=== PATIENT | male | born 1945 | race Caucasian/White ===

== ENCOUNTER 2024-09-19 08:31 | Emergency (ER) | payer MEDICARE, OTHER, SELFPAY ==
[2024-09-19 08:45] VITALS: BP 138/79; PULSE 99; RESP 16; TEMP 36.8; O2SAT 98
--- NOTE | 2024-09-19 09:07 | ED_ITS ---
HPI - Wound/Laceration General Chief Complaint: Wound/Laceration Stated Complaint: RACCOON BITE TO L INDEX FINGER Source: patient Mode of arrival: ambulatory Limitations: no limitations History of Present Illness HPI narrative: 79-year-old male presented for complaint of the recommend bite to the left index fingertip sustained this morning. Patient removed the flap of skin prior to arrival. No other treatment. Unsure of his last tetanus. States he captured the wild raccoon and upon releasing it the raccoon bit him. Pt is not vaccinated for rabies. Related Data Home Medications Medication Instructions Recorded Confirmed Last Taken Type aspirin 81 mg capsule 81 mg PO DAILY 09/19/24 09/19/24 Unknown History dulaglutide 0.75 mg/0.5 mL mg subcut 09/19/24 Unknown History subcutaneous pen injector (Trulicity) lisinopril 20 mg tablet mg 09/19/24 Unknown History lovastatin 40 mg tablet mg 09/19/24 Unknown History metoprolol succinate 50 mg mg PO 09/19/24 Unknown History tablet,extended release 24 hr sitagliptin phos 100 mg-metformin tablet PO 09/19/24 Unknown History ER 1,000 mg tablet,extend rel 24h mp (Janumet XR) tamsulosin 0.4 mg capsule mg PO 09/19/24 Unknown History Allergies Allergy/AdvReac Type Severity Reaction Status Date / Time No Known Allergies Allergy Verified 09/19/24 08:47 Review of Systems Review of Systems: CONSTITUTIONAL: Denies body aches, fever, chills, or sweats. EYES: Denies visual changes, redness, or discharge. ENT: Denies rhinorrhea, congestion CARDIOVASCULAR: Denies chest pain, palpitations, or edema. RESPIRATORY: Denies cough or dyspnea. GASTROINTESTINAL: Denies abdominal pain, nausea, vomiting, or diarrhea. SKIN: per HPI MUSCULOSKELETAL: Denies back pain, joint pain, or myalgia. NEUROLOGIC: Denies headache, numbness, tingling, or weakness. PMFSH Comments At time of signature, I have reviewed and agree with nursing past medical, annabel gical, social and family history unless otherwise noted. Please see nursing chart for further information. There is no relevant family history pertinent to the presenting complaint Exam Narrative: GENERAL: Well-appearing EYES: conjunctivae clear, and EOMI. ENT: Mucous membranes moist. NECK: Supple. No lymphadenopathy CHEST: Clear to auscultation. HEART: Regular rate and rhythm. SKIN: Warm, dry. Left 2nd digit distal phalanx with skin avulsion approx 0.5 cm, no flap present. Scant active bleeding. CMS intact. NEURO: Alert and oriented x3. Course Course Emergency Course: Patient is aware of diagnosis, understands and agrees to treatment plan. Anticipatory guidance given. Patient agrees to follow-up as directed and is aware of reasons to seek care at the emergency department. Portions of this record may have been created with voice recognition software Level of Care: Express Care Visit Vital Signs Vital signs: Vital Signs Temperature 98.3 F 09/19/24 08:45 Pulse Rate 99 09/19/24 08:45 Respiratory Rate 16 09/19/24 08:45 Blood Pressure 138/79 09/19/24 08:45 Pulse Oximetry 98 09/19/24 08:45 Temperature 98.3 F 09/19/24 08:45 Pulse Rate 99 09/19/24 08:45 Respiratory Rate 16 09/19/24 08:45 Blood Pressure 138/79 09/19/24 08:45 Pulse Oximetry 98 09/19/24 08:45 Reviewed MDM - Wound/Laceration MDM Narrative Medical decision making narrative: Pt presented with reported raccoon bite injury to left 2nd digit; 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 Wound soaked in povidone-iodine solution. Dressing applied, telfa and coban. Tetanus updated today. Pt requires rabies treatment, agreeable to transfer to ER as health dept closed today. Pt is accompanied by dtr. Differential Diagnosis Differential diagnosis: Likely laceration, abrasion and avulsion of skin Discharge Plan Discharge Clinical Impression: Raccoon bite Patient Disposition: Acute Care Hospital Condition: Stable Patient Language: Serbian Prescriptions: No Action metoprolol succinate 50 mg tablet extended release 24 hr PO lisinopril 20 mg tablet lovastatin 40 mg tablet Janumet XR 100-1,000 mg tablet, ER multiphase 24 hr PO Trulicity 0.75 mg/0.5 mL pen injector SUBCUT tamsulosin 0.4 mg capsule PO aspirin 81 mg capsule 81 mg PO DAILY Follow-up/Referrals: Romario,MD Arlyn [Primary Care Provider] - Time of Disposition: 09:09
[2024-09-19] MEDS: TETANUS/DIPHTHERIA TOXOIDS ADSORB 0.5 ML SYRINGE (*BKC) IM (09:24)
== END 2024-09-19 09:28 | disposition short-term general hospital (02) ==
PROVIDERS: PCP Internal Medicine
DX: S61.251A Open bite of left index finger without damage to nail, initial encounter (principal); W55.51XA Bitten by raccoon, initial encounter; Z23 Encounter for immunization; E11.9 Type 2 diabetes mellitus without complications; I10 Essential (primary) hypertension; E78.00 Pure hypercholesterolemia, unspecified; N40.0 Benign prostatic hyperplasia without lower urinary tract symptoms; Z85.828 Personal history of other malignant neoplasm of skin; Z79.82 Long term (current) use of aspirin
CPT/HCPCS: 90471; 90714; 99202; G0463

== ENCOUNTER 2024-09-19 09:51 | Emergency (ER) | payer MEDICARE, OTHER, SELFPAY ==
--- OUTSIDE RECORDS SUMMARY | 2024-09-19 09:52 | XMS_ITS | Encounter Summary ---
Author Organization [facility] Address [facility] [place] [address] Care Team Providers Care Bias Binding Folder Name Role Phone Arlyn Doss MD Primary Care Provider [phone] Encounter Details Date Type Department Care Team (Late st Contact Info) Description 07/26/2024 [employer] Message Enc [facility] Medical Group Multispecialty Care - [facility] [address] [facility], [address] [place] [address] Kellee Cohen NP [address] [facility] [address] [place] [address] Samir Carroll Social History Tobacco Use Types Packs/Day Years Used Date Smoking Tobacco: Never Smokeless Tobacco: Never Alcohol Use Standard Drinks/Week Comments Yes 0 (1 standard drink = 0.6 oz pur e alcohol) Occasionally AUDIT-C Answer Date Recorded Q1: How often do you have a drink containing alc ohol? 2-4 times a month 03/04/2024 Q2: How many drinks containi ng alcohol do you have on a typical day when you are drinking? 1 or 2 03/04/2024 Q3: How often do you have si x or more drinks on one occasion? 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 It sounds like a very difficult situation for everyone involved. During the appointment, I'll make sure to approach the conversation with sensitivity and care, keeping in mind his feelings and your concerns. It's importantto ensure everyone's safety and well-being, and I'll do my best to address any issues in a way thatrespects his dignity and your role as his support. documented in this encounter Plan of Treatment Upcoming Encounters Date Type Department Care Team (Late st Contact Info) Description 10/22/2024 10:40 AM CDT Office Visit [facility] Multispecialty Care - [facility] [address] [facility], [address] [place] [address] Kellee Cohen NP [address] [facility] [address] [place] [address] 11/25/2024 10:40 AM CDT [facility] [place] - [address] [place] [address] Arlyn Doss MD [address] [place] [address] [address] [place] [address] documented as of this encounter Visit Diagnoses Not on filedocumented in this encounter Additional Health Concerns Assessment Noted Time PHQ-9 Depression Total Score: 2 03/04/20 24 2:21 PM CDT documented as of this encounter Care Teams Bias Binding Folder Relationship Specialty Start Date End Date Arlyn Doss MD [address] [place] [address] [address] [place] [address] PCP - General INTERNAL MEDICINE 03/04/24 documented as of this encounter
--- OUTSIDE RECORDS SUMMARY | 2024-09-19 09:52 | XMS_ITS | Encounter Summary ---
Author Organization [facility] Address [facility] [place] [address] Care Team Providers Care Senior Receptionist Name Role Phone Arlyn Doss MD Primary Care Provider [phone] Encounter Details Date Type Department Care Team (Late st Contact Info) Description 09/09/2024 MyChart Message Enc [facility] Medical Group Multispecialty Care - [place] [address] [place] [address] [address] [place], [place] [id number] Arlyn Doss MD [address] [facility] [address] [place], [place] [id number] Samir diabetes Social History Tobacco Use Types Packs/Day Years Used Date Smoking Tobacco: Never Smokeless Tobacco: Never Comments:Counseled by Dr. Nara carson. 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 Legal Sex Male 7:10 PM CDT Gender Identity Male 08/25/2024 10:28 AM CDT Sexual Orientation Straight 08/25/2024 10 :28 AM CDT documented as of this encounter Plan of Treatment Upcoming Encounters Date Type Department Care Team (Late st Contact Info) Description 10/22/2024 10:40 AM CDT Office Visit [facility] Medical [facility] Multispecialty [facility] [address] [facility], [address] [place] [address] Kellee Cohen NP [address] [facility] [address] [place] [address] 11/25/2024 10:40 AM CDT [facility] [address] [place] [address] [place] [address] [place] [address] [address] [place] [address] documented as of this encounter Visit Diagnoses Not on filedocumented in this encounter Additional Health Concerns Assessment Noted Time PHQ-9 Depression Total Score: 2 03/04/20 24 2:21 PM CDT documented as of this encounter Care Teams Senior Receptionist Relationship Specialty [place] [address] [place] [address] [address] [place] [address] PCP - General INTERNAL MEDICINE 03/04/24 documented as of this encounter
--- OUTSIDE RECORDS SUMMARY | 2024-09-19 09:52 | XMS_ITS | Encounter Summary ---
Author Organization [facility] Address [address] [place] [address] Care Team Providers Care Motor Equipment Sergeant Name Role Phone Arlyn Doss MD Primary Care Provider [phone] Encounter Details Date Type Department Care Team (Latest Contact Info) Description 08/26/2024 Results Follow-Up [facility] Medical Group Multispecialty Care - [place] [address] [address] [place], [place] [id number] Arlyn Doss MD [address] [facility] [address] [place] [address] ALBUMIN/CREATININE RATIO, RANDOM URINE, COMPREHENSIVE METABOLIC PANEL, HEMOGLOBIN, GLYCOSYLATED Social History Tobacco Use Types Packs/Day Years [...] Sex Assigned at Male 05/19/2024 9:47 AM 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 Multispecialty Care - [facility] [address] [facility], [address] [place] [address] Kellee Cohen NP [address] [facility] [address] [place] [address] 11/25/2024 10:40 AM CDT [facility] - [place] [address] [address] [place] [address] Arlyn Doss MD [address] [place] [address] [address] [place] [address] documented as of this encounter Visit Diagnoses Not on filedocumented in this encounter Additional Health Concerns Assessment Noted Time PHQ-9 Depression Total Score: 2 03/04/20 24 2:21 PM CDT documented as of this encounter Care Teams Motor Equipment Sergeant Relationship Specialty Start Date End Date Arlyn Doss MD [address] [place] [address] [address] [place] [address] PCP - General INTERNAL MEDICINE 03/04/24 documented as of this encounter
--- OUTSIDE RECORDS SUMMARY | 2024-09-19 09:52 | XMS_ITS | Encounter Summary ---
Author Organization [facility] Address [facility] [place] [address] Care Team Providers Care Education Assistant Name Role Phone Sri Reinoso MD Primary Care Provider [phone] Arlyn Doss MD Primary Care Provider [phone] Encounter Details Date Type Department Care Team (Late Contact Info) Description 09/29/2020 Prep for Procedure [facility] Pre-Admission Testing [place], [place] [address] Gonsalo Anderson MD [address] [facility] [address] [place] [address] Social History Tobacco Use Types Packs/Day Years Used Date Smoking Tobacco: Never Smokeless Tobacco: Never Alcohol Use Standard Drinks/Week Comments Not Currently 0 (1 standard drink = 0.6 oz pur e alcohol) Sex and Gender Information Value Date Recorded Sex Assigned at Male 05/19/2024 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 No / Unsure 09/29/2020 1:40 PM CDT documented as of this encounter Plan of Treatment Upcoming Encounters Date Type Department Care Team (Late Contact Info) Description 10/22/2024 10:40 AM CDT Office Visit [facility] Mult[facility]pecialty Care - [facility] [address] [facility], [address] [place] [address] Kellee Cohen NP 3 [facility] [address] [place] [address] 11/25/2024 10:40 AM CDT Office Visit [facility] Multispecialty Care - [place] [address] [place] [address] [address] [place], [place] [phone] Arlyn Doss MD [address] [facility] [address] [place], [place] [address] documented as of this encounter Results * (ABNORMAL) URINALYSIS WI REFLEX TO CULTURE (10/04/2020 11:04 AM CDT) SPECIMEN TYPE URINE CLEAN CATCH 10/04/2020 11:04 AM CDT [facility] COLOR (U) YELLOW 10/04/2020 12:47 PM CDT [facility] TRANSPARENCY EXTREMELY TURBID 10/04/2020 12:47 PM CDT [facility] SPECIFIC GRAVITY (U) 1.028 1.001 - 1.030 10/04/2020 12:47 PM CDT [facility] U PH 5.5 5.0 - 9.0 10/04/2020 12:47 PM CDT [facility] LEUKOCYTES (U) 500(A) NEGATIVE 10/04/2020 12:47 PM CDT [facility] NITRITES 1+(A) NEGATIVE 10/04/2020 12:47 PM CDT [facility] PROTEIN (U) 50(H) <30 MG/DL 10/04/2020 12:47 PM CDT [facility] URINE GLUCOSE >1000(A) NORMAL MG/DL 10/04/2020 12:47 PM CDT [facility] KETONES MG/DL (U) 20(A) NEGATIVE MG/DL 10/04/2020 12:47 PM CDT [facility] Comment: Successful Call: [facility] called 10/04/2020 12:48 PM to [facility] ([id number]/MITCHELL Molina) by [id number]. Read Back: Yes UROBILINOGEN NORMAL NORMAL MG/DL 10/04/2020 12:47 PM CDT [facility] BILIRUBIN (U) NEGATIVE NEGATIVE MG/DL 10/04/2020 12:47 PM CDT [facility] BLOOD (U) 1+(A) NEGATIVE 10/04/2020 12:47 PM CDT [facility] CULTURE & SENSITIVITY INDICATED? SPECIMEN SETUP FOR CULTURE 10/04/2020 12:47 PM CDT [facility] MUCUS MANY /LPF 10/04/2020 3:10 PM CDT [facility] WBC/HPF >100(H) <6 /HPF 10/04/2020 3:10 PM CDT [facility] WBC CLUMPS PRESENT 10/04/2020 3:10 PM CDT [facility] RBC/HPF 6(H) <6 /HPF 10/04/2020 3:10 PM CDT [facility] URINE SPECIMEN OBTAINED BY CLEAN CATCH PROCEDURE / Unknown 10/04/2020 11:04 AM CDT us Gonsalo nAderson MD URINE ORDERABLES Final Result [facility] [address] [place] [address], [place] [phone] documented in this encounter Visit Diagnoses Diagnosis Pre-op exam- Primary Preoperative examination, unspecified BPH (benign prostatic hyperplasia) Unspecified hyperplasia of prostate without urinary obstruction and other lower urinary tract symptoms (LUTS) documented in this encounter Additional Health Concerns Infection Onset Date Last Indicated Resolved Time COVID-19 Rule Out 10/04/2020 10/04/2020 10/04/2020 1:22 PM CDT COVID-19 Rule Out 10/04/2020 10/04/2020 10/05/2020 7:36 AM CDT documented as of this encounter Care Teams Education Assistant Relationship Specialty Start Date End Date Sri Reinoso MD [address] [id number] PCP - General 07/15/14 03/03/24 Arlyn Doss MD [address] [address] PCP - General INTERNAL MEDICINE 03/04/24 documented as of this encounter
--- OUTSIDE RECORDS SUMMARY | 2024-09-19 09:52 | XMS_ITS | Clinical Summary ---
Author Organization [facility] Address [address] [place] [address] Care Team Providers Care Urgent Care Name Role Phone Arlyn Doss MD Primary Care Provider [phone] Allergies No known active allergies Medications aspirin 81 MG chewable tablet daily. Acti ve Blood Glucose Monitoring Suppl (Advenchen LaboratoriesSTYLE FREEDOM LITE) w/Device Kit 4 Active lovastatin (MEVACOR) 40 MG tabletIndications :Hyperlipidemia associated with type 2 diabetes mellitus ([facility]) Take 1 tablet (40 mg total) by mouth daily. 90 tablet 3 4 Active lisinopril (PRINIVIL) 20 MG tabletIndications :Primary hypertension Take 1 tablet (20 mg total) by mouth daily. 90 tablet 3 4 Active tamsulosin (FLOMAX) 0.4 MG CapIndications:Be nign prostatic hyperplasia with lower urinary tract symptoms, symptom details unspecified Take 1 capsule (0.4 mg total) by mouth daily. 90 capsule 3 4 Active metoprolol succinate ER (TOPROL-XL) 50 MG 24 hr tabletIndications :Primary hypertension Take 1 tablet (50 mg total) by mouth daily. 90 tablet 3 4 Active Lancets (FREESTYLE) lancetsIndication s:Type 2 diabetes mellitus with hyperglycemia, without long-term current use of insulin ([facility]) Use daily to check to blood sugar 200 each 11 4 Active FREESTYLE LITE test stripIndications: Type 2 diabetes mellitus with hyperglycemia, without long-term current use of insulin ([facility]) Use daily to check to blood sugar 200 strip 11 4 Active JARDIANCE 25 MG tabletIndications :Type 2 diabetes mellitus with hyperglycemia, without long-term current use of insulin ([facility]) Take 1 tablet (25 mg total) by mouth daily. 90 tablet 3 5 Active sitaGLIPtin-metFO RMIN ER (JANUMET XR) 100-1000 MG TABLET SR 24 HR 24 hr tabletIndications :Type 2 diabetes mellitus with hyperglycemia, without long-term current use of insulin ([facility]) Take 1 tablet by mouth daily. 90 tablet 3 5 Active dulaglutide (TRULICITY) 0.75 MG/0.5ML injectionIndicati ons:Type 2 diabetes mellitus with hyperglycemia, without long-term current use of insulin ([facility]) Inject 0.75 mg into the skin once a week. 2 mL 2 5 Active sitaGLIPtin-metFO RMIN ER (JANUMET XR) 100-1000 MG TABLET SR 24 HR 24 hr tabletIndications :Type 2 diabetes mellitus with hyperglycemia, without long-term current use of insulin ([facility]) Take 1 tablet by mouth daily. 90 tablet 3 5 08/26/19 25 Discontinu ed(Reorder ) JARDIANCE 25 MG tabletIndications :Type 2 diabetes mellitus with hyperglycemia, without long-term current use of insulin ([facility]) Take 1 tablet (25 mg total) by mouth daily. 90 tablet 3 5 08/26/19 25 Discontinu ed(Reorder ) dulaglutide (TRULICITY) 0.75 MG/0.5ML injectionIndicati ons:Type 2 diabetes mellitus with hyperglycemia, without long-term current use of insulin ([facility]) Inject 0.75 mg into the skin once a week. 2 mL 2 5 09/10/19 25 Discontinu ed(Reorder ) Active Problems Problem Noted Date Diagnosed Date Type 2 diabetes mellitus wit hout complication, without long-term current use of insulin ([facility]) 03/04/2024 Encounters Date Type Department Care Team Description 09/09/2024 Orders Only [facility] - [place] [id number] [facility] [address] [place] [address] Arlyn Doss MD 09/09/2024 Telephone [facility] Multispecialty [place] [id number] [place] [address] Arlyn Doss MD Appointment Request (AWV- Call back in a couple months and try to schedule with PCP visit) 09/09/2024 MyChart Message Enc [facility] Mult[facility]pecialty [place] [id number] [facility] [address] [place] [address] Arlyn Doss MD [place] diabetes 08/26/2024 Scan Taste Guru INFO SRVCS Scanned, [facility] 08/26/2024 [facility] [place] [address] [facility] [address] [place] [address] Arlyn Doss MD Medication 08/26/2024 MyChart Message Enc [facility] Multispecialty [place] [address] [place] [address] Arlyn Doss MD [place] immunization record 08/26/2024 Results [facility] [place] [address] [facility] [address] [place] [address] Arlyn Doss MD ALBUMIN/CREATININE RATIO, RANDOM URINE, COMPREHENSIVE METABOLIC PANEL, HEMOGLOBIN, GLYCOSYLATED 08/25/2024 10:40 AM CDT Office Visit [facility] Multispecialty [place] [address] [place] [address] Arlyn Doss MD Follow Up; Diabetes 08/25/2024 MyChart Message Enc [facility] Multispecialty [place] [address] [place] [address] Arlyn Doss MD [place] [facility] BP 08/25/2024 Telephone [facility] Multispecialty [place] [address] [place] [address] Arlyn Doss MD Blood Pressure 08/25/2024 Travel 07/27/2024 9:40 AM CDT Office Visit [facility] [address] [place] [address] Kellee Cohen NP Establish Care (Memory loss) 07/27/2024 Travel 07/26/2024 MyChart Message Enc [facility] [address] [place] [address] Kellee Cohen NP Samir Carroll from Last 3 Months Immunizations Immunization Administration Dates Next Due Fluzone High Dose (IIV, triv alent, 0.5mL) 03/04/2024 Hepatitis B (Generic: Adult) 05/27/1998,12/04/18 98,11/03/1997 Influenza (Generic) 03/20/2005, 3,02/18/2002,2000 Influenza Adult (Generic) 03/20/2005,,02/18/2002,2000 MMR 11/10/1997 Opv 11/10/1966 Pneumococcal (Pneumovax 23) 10/21/2018, 3 Pneumococcal (Prevnar 13) 04/10/2017 Pneumococcal (Prevnar 20) 03/04/2024 RSV VACCINE, UNSPECIFIED 08/26/2024 Td (TDVAX) 06/10/1998 Td (Tenivac) preservative free 06/10/1998 Tdap (Generic) 04/03/2017,06/04/2006 Zoster (Zostavax) 65471 Unt/0.65Ml 03/22/2021,,11/10/2012 Family History Medical History Relation Comments Cancer Brother 1 Pancreatic Cancer Brother 2 Pancreatic Diabetes Brother 3 Diabetic Heart Disease Mother Heart family con dition Relation Status Comments Brother 1 Brother 2 Brother 3 Mother Social History Tobacco Use Types Packs/Day Years Used Date Smoking Tobacco: Never Smokeless Tobacco: Never Tobacco Cessation:Counseling Given: Yes Comments:Counseled by Dr. Doss. Alcohol Use Standard Drinks/Week Comments Yes 0 [...] Sex Assigned at Male 05/19/2024 9:47 AM DIE CUTTER OPERATOR Legal Sex Male 7:10 PM CDT Gender Identity Male 08/25/2024 10:28 AM CDT Sexual Orientation Straight 08/25/2024 10 :28 AM CDT Last Filed Vital Signs Vital Sign Reading Time Taken Comments Blood Pressure 139/81 08/25/2024 12:56 PM CDT Pulse 71 08/25/2024 10:28 AM CDT Temperature 36.8 C (98.2 F) 05/19/2024 9:57 AM DIE CUTTER OPERATOR Respiratory Rate 18 08/25/2024 10:28 AM CDT Oxygen Saturation 98% 08/25/2024 10:28 AM CDT Inhaled Oxygen Concentration - - Weight 77.1 kg (170 lb) 08/25/2024 10:28 AM CDT Height 180.3 cm (5' 11 ) 08/25/2024 10:28 AM CDT Body Mass Index 23.71 08/25/2024 10:28 AM CDT Plan of Treatment Upcoming Encounters Date Type Department Care Team (Late st Contact Info) Description 10/22/2024 10:40 AM CDT Office Visit [facility] Medical [facility] Multispecialty Care - [address], [address] [place] [phone] Kellee Cohen NP [address] [facility] [address] [place] [address] 11/25/2024 10:40 AM CDT Office Visit [facility] Medical Group Multispecialty Care - [address] [place] [address] Arlyn Doss MD [address] [facility] [address] [place] [address] Health Maintenance Due Date Last Done Comments Annual Medicare Wellness Visit 2010 Zoster Vaccines (2 of 3) 05/17/2021 021, 12/06/2020, 11/10/2012 COVID-19 Vaccine ( season) 2024 Hemoglobin A1C 02/24/2025 08/25/2024, 05/06, 05/19/2024, Additional history exists Lipid Panel 03/10/2025 03/10/2024 Kidney Health Evaluation 08/25/2025 08/25/2024 Diabetes: Retinopathy Eye Exam 09/08/2025 09/09/2023 DTaP, Tdap and Td Vaccines (3 - Td or Tdap) 04/03/2027 04/03/2017, 06/04/2006, 06/10/1998, Additional history exists Pneumococcal Vaccine: 50+ Years Completed 03/04/2024, 10/21/2018, 04/10/2017, Additional history exists Hepatitis C Completed 03/10/2024 PHQ-2 (Physician [place]) Completed 05/19/2024 RSV Immunization or 60+ Years Completed 08/26/2024 Meningococcal B Vaccine Aged Out No l onger eligible based on patient's age to complete this topic Meningococcal Vaccine Aged Out No [place] best eligible based on patient's age to complete this topic RSV Immunizations Under 20 Months Aged Out No longer eligible based on patient's age to complete this topic Procedures Procedure Name Priority Date/Time Associated Diagnosis Comments COMPREHENSIVE METABOLIC PANEL Routine 08/25/2024 10:44 AM CDT Type 2 diabetes mellitus with hyperglycemia, without long-term current use of insulin ([facility]) HEMOGLOBIN, GLYCOSYLATED Routine 08/25/2024 10:44 AM CDT Type 2 diabetes mellitus with hyperglycemia, without long-term current use of insulin ([facility]/HCC) ALBUMIN URINE RANDOM W/CREATININE Routine 08/25/2024 10:44 AM CDT Type 2 diabetes mellitus with hyperglycemia, without long-term current use of insulin ([facility]) COLLECTION VENOUS BLOOD VENIPUNCTURE Routine 08/25/2024 10:39 AM CDT Type 2 diabetes mellitus with hyperglycemia, without long-term current use of insulin ([facility]) HEPATITIS C ANTIBODY Routine 03/10/2024 10:14 AM DIE CUTTER OPERATOR General medical exam Screening for diabetes mellitus Screening for hyperlipidemia Encounter for hepatitis C screening test for low risk patient Drug therapy LIPID PANEL Routine 03/10/2024 10:14 AM DIE CUTTER OPERATOR General medical exam Screening for diabetes mellitus Screening for hyperlipidemia Drug therapy DIABETIC RETINOPATHY EXAM (NEGATIVE)(SCAN ORDER) Routine 09/09/2023 from Last 3 Months or Most Recently Relevant to Health Maintenance Results * (ABNORMAL) HEMOGLOBIN, GLYCOSYLATED (08/25/2024 10:44 AM CDT) [facility] HGB A1C 8.0(H) 4.5 - 6.2 % 08/26/2024 9:26 AM CDT [facility] ESTIMATED AVG GLUCOSE 183(H) 74 - 106 MG/DL 08/26/2024 9:26 AM CDT [facility] 08/25/2024 10:4 4 AM CDT Arlyn Doss MD LABORATORY Final Result [facility] [address] [place] [address], [place] [phone] * (ABNORMAL) ALBUMIN/CREATININE RATIO, RANDOM URINE (08/25/2024 10:44 AM CDT) MICROALBUMIN (U) 12.6 <20 MG/L 08/26/19 25 8:12 PM CDT [facility] CREATININE RANDOM (U) 38.1 MG/DL 08/25/2024 8:12 PM CDT [facility] ALBUMIN/CREAT RATIO 33.1(H) <30 MG/G 08/25/2024 8:12 PM CDT [facility] URINE SPECIMEN / Unknown 08/25/2024 10:44 AM CDT Arlyn Doss MD URINE ORDERABLES Final Result [facility] [address] [place] [address], * (ABNORMAL) COMPREHENSIVE METABOLIC PANEL (08/25/2024 10:44 AM CDT) Path[facility] SODIUM S/P/B 138 136 - 145 MMOL/L 08/25/2024 8:12 PM CDT [facility] POTASSIUM S/P/B 4.4 3.5 - 5.1 MMOL/L 08/25/2024 8:12 PM CDT [facility] CHLORIDE S/P/B 101 98 - 107 MMOL/L 08/25/2024 8:12 PM CDT [facility] CO2 30.9 21 - 32 MMOL/L 08/25/2024 8:12 PM CDT [facility] GLUCOSE 222(H) 70 - 99 MG/DL 08/25/2024 8:12 PM T [facility] BUN 23(H) 7 - 18 MG/DL 08/25/2024 8:12 PM CDT [facility] CREATININE S/P/B 1.04 0.70 - 1.30 MG/DL 08/25/2024 8:12 PM CDT [facility] CALCIUM S/P/B 9.7 8.4 - 10.5 MG/DL 08/25/2024 8:15 PM [facility] BILIRUBIN TOTAL S/P/B 0.9 0.2 - 1.0 MG/DL 08/25/2024 8:12 PM [facility] ALKALINE PHOSPHATASE S/P/B 79 45 - 115 U/L 08/25/2024 8:12 PM T [facility] AST 18 15 - 37 U/L 08/25/2024 8:12 PM CDT [facility] ALT 29 16 - 63 U/L 08/25/2024 8:12 PM [facility] TOTAL PROTEIN S/P/B 7.4 6.4 - 8.2 G/DL 08/25/2024 8:12 PM [facility] ALBUMIN S/P/B 4.1 3.4 - 5.0 G/DL 08/25/2024 8:12 PM [facility] ANION GAP 6.1 5 - 15 MMOL/L 08/25/2024 8:12 PM [facility] Comment:REFERENCE RANGE NOT ESTABLISHED OSMOLALITY (CALC) 297 MOSM/KG 025 8:12 PM [facility] Comment:REFERENCE RANGE NOT ESTABLISHED GFR ESTIMATE 73(L) >90 ML/MIN/1. 73 M2 08/25/2024 8:12 PM [facility] GFR NOTES GFR REFERENCE S: 08/25/2024 8:12 PM T [facility] Comment: THE ESTIMATED GFR IS CALCULATED USING THE 2020 CKD-EPI EQUATION. THE FOLLOWING CATEGORIES FOR GRADING RENAL FUNCTION ARE RECOMMENDED BY THE INTERNATIONAL SOCIETY OF NEPHROLOGY (KDIGO 2012 CLINICAL PRACTICE GUIDELINE). G1,NORMAL OR HIGH: >89 ml/min/1.73 m2 G2,MILDLY DECREASED: 60-89 ml/min/1.73 m2 G3A,MILDLY TO MODERATELY DECREASED: 45-59 ml/min/1.73 m2 G3B,MODERATELY TO SEVERELY DECREASED: 30-44 ml/min/1.73 m2 G4,SEVERELY DECREASED: 15-29 ml/min/1.73 m2 G5,KIDNEY FAILURE: <15 ml/min/1.73 m2 08/25/2024 10:4 4 AM CDT Arlyn Doss MD LABORATORY Final Result [facility] [place] [address] [place] [address], [place] [phone] * LIPID PANEL (03/10/2024 10:14 AM DIE CUTTER OPERATOR) CHOLESTEROL 148 <200 MG/DL 03/10/2024 3:27 PM DIE CUTTER OPERATOR [facility] TRIGLYCERIDES 72 <150 MG/DL 03/10/2024 3:27 PM DIE CUTTER OPERATOR [facility] HDL 59 >40 MG/DL 03/10/2024 3:27 PM DIE CUTTER OPERATOR [facility] LDL-C 75 <100 MG/DL 03/10/2024 3:27 PM DIE CUTTER OPERATOR [facility] VLDL CALCULATION 14 5 - 28 MG/DL 03/10/2024 3:27 PM DIE CUTTER OPERATOR [facility] CHOL/HDL RATIO 2.5 0.0 - 4.0 03/10/2024 3:27 PM DIE CUTTER OPERATOR [facility] LDL/HDL 1.3 0.41 - 2.13 03/10/2024 3:27 PM DIE CUTTER OPERATOR [facility] NON HDL CHOLESTEROL 89 <140 MG/DL 03/10/2024 3:27 PM DIE CUTTER OPERATOR [facility] 03/10/2024 10:1 4 AM DIE CUTTER OPERATOR us Arlyn Doss MD LABORATORY Final Result [facility] [place] [address] [place] [address], [place] [phone] * HEPATITIS C ANTIBODY (03/10/2024 10:14 AM DIE CUTTER OPERATOR) HEPATITIS C AB NON-REACTI VE NON-REACT TILA 03/10/2024 8:46 PM DIE CUTTER OPERATOR [facility] Comment: ANTIBODIES TO HCV NOT DETECTED. DOES NOT EXCLUDE THE POSSIBILITY OF EXPOSURE TO HCV. 03/10/2024 10:1 4 AM DIE CUTTER OPERATOR Arlyn Doss MD LABORATORY Final Result Performing Organization Address City[facility]/ZIP Co de Phone Number [facility] [address] [place] [address], [phone] * DIABETIC RETINOPATHY EXAM (NEGATIVE) (09/09/2023) us Doc [facility] Scanned SCANNING Final Resu lt Performing Organization Address [facility]/ZIP Co de Phone Number [facility] ONBASE from Last 3 Months or Most Recently Relevant [place] [id number] [facility] Advance Directives Documents on File Type Date Recorded 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
--- OUTSIDE RECORDS SUMMARY | 2024-09-19 09:52 | XMS_ITS | Encounter Summary ---
Author Organization [facility] Address [facility] [place] [address] Care Team Providers Care Fuel Verification Technician Name Role Phone Sri Reinoso MD Primary Care Provider [phone] Arlyn Doss MD Primary Care Provider [phone] Encounter Details Date Type Department Care Team (Latest Contact Info) Description 03/01/2024 Reppify Message Enc [facility] Medical Group Multispecialty Care - [place] [address] [address] [place] [address] [place] [address] [place] [address] [address] [place] [address] Mr. Samir Carroll Social History Tobacco Use Types Packs/Day Years Used Date Smoking Tobacco: Never Smokeless Tobacco: Never Alcohol Use Standard Drinks/Week Comments Not Currently 0 (1 standard drink = 0.6 oz pur e alcohol) AUDIT-C Answer Date Recorded Q1: How often [...] Date Recorded Patient Health Questionnaire-2 Score 0 03/04/2024 Sex and Gender Information Value Date Recorded Sex Assigned at Male 05/19/2024 9:47 AM COST ENGINEER Legal Sex Male 7:10 PM CDT Gender Identity Male 08/25/2024 10:28 AM CDT Sexual Orientation Straight 08/25/2024 10 :28 AM CDT documented as of this encounter Functional Status * Over the past 2 weeks, how often have you been bothered by any of the following problems? Question Answer Date of Assessment Author Status Little interest or pleasure in doing things Not at all 03/04/2024 2:21 PM CDT Laura Ho MA Active Feeling down, depressed, or hopeless Not at all 03/04/2024 2:21 PM CDT Laura Ho MA Active Patient Health Questionnaire-2 Score 0 03/04/2024 2:21 PM CDT Laura Ho MA Active * Question Answer Date of Assessment Author Status Trouble falling or staying asleep, or sleeping too much Several days 03/04/2024 2:21 PM CDT Laura Ho MA Acti ve Feeling tired or having little energy Several days 03/04/2024 2:21 PM CDT Laura Ho MA Active Poor appetite or overeating Not at all 03/04/2024 2:21 PM CDT Laura Ho MA Active Feeling bad about yourself - or that you are a failure or have let yourself or your family down Not at all 03/04/2024 2:21 PM CDT Laura Ho MA Active Trouble concentrating on things, such as reading the newspaper or watching television Not at all 03/04/2024 2:21 PM CDT Laura Ho MA Active Moving or speaking so slowly that other people could have noticed? Or the opposite - being so fidgety or restless that you have been moving around a lot more than usual. Not at all 03/04/2024 2:21 PM CDT Laura Ho MA Active Thoughts that you would be better off or hurting yourself in some way Not at all 03/04/2024 2:21 PM CDT Laura Ho MA Active Patient Health Questionnaire-9 Score 2 03/04/2024 2:21 PM CDT Laura Ho MA Active * Calculated C-SSRS Risk Score (Lifetime/Recent) Answer Date of Assessment Author Status No Risk Indicated 03/04/2024 6:15 PM CDT Arlyn Doss MD Active * Over the last 2 weeks, how often have you been bothered by any of the following problems? Question Answer Date of Assessment Author Status Feeling nervous, anxious, or on edge 0 03/04/2024 2:23 PM CDT Laura Ho MA Active Not being able to stop or control worrying 0 03/04/2024 2:23 PM CDT Laura Ho MA Activ e Worrying too much about different things 0 03/04/2024 2:23 PM CDT Laura Ho MA Activ e Trouble relaxing 0 03/04/2024 2:23 PM CDT Laura Ho MA Active Being so restless that it is hard to sit still 0 03/04/2024 2:23 PM CDT Laura Ho MA Acti ve Becoming easily annoyed or irritable 0 03/04/2024 2:23 PM CDT Laura Ho MA Active Feeling afraid as if something awful might happen 0 03/04/2024 2:23 PM CDT Laura Ho MA Active EMERALD-7 Total Score 0 03/04/2024 2:23 PM CDT Laura Ho MA Active * [place] Suicide Severity Rating Scale (Screener/Recent Self-Report) Question Answer Date of Assessment Author Status 1. Wish to be (Past 1 Month) No 03/04/2024 6:15 PM ROSAT Arlyn Doss MD Active 2. Non-Specific Active Suici matthew Thoughts (Past 1 Month) No 03/04/2024 6:15 PM ROSAT Arlyn Doss MD Active 6. Suicidal Behavior (Lifetime) No 03/04/2024 6:15 PM Arlyn Salcedo MD Active documented as of this encounter Plan of Treatment Upcoming Encounters Date Type Department Care Team (Late st Contact Info) Description 10/22/2024 10:40 AM CDT Office Visit [facility] Medical Group Multispecialty Care - [address], [address] [place] [address] Kellee Cohen, HACK DRIVER [address] [facility] [address] [place] [address] 11/25/2024 10:40 AM CDT Office Visit [facility] Medical Group Multispecialty Care - [place] [address] [address] [place] [address] Arlyn Doss MD [address] [place] [address] documented as of this encounter Visit Diagnoses Not on filedocumented in this encounter Care Teams Fuel Verification Technician Relationship Specialty Start Date End Date Sri Reinoso MD [address] [id number] PCP - General 07/15/14 03/03/24 Arlyn Doss MD [address] [place] [address] PCP - General INTERNAL MEDICINE 03/04/24 documented as of this encounter
[2024-09-19 10:01] VITALS: BP 141/76; PULSE 75; RESP 14; TEMP 36.6; O2SAT 99
--- NOTE | 2024-09-19 12:49 | ED.GENADULT ---
HPI - General Adult General Chief complaint: Animal Bite Stated complaint: bit by racoon Time Seen by Provider: 09/19/24 12:32 History of Present Illness HPI narrative: Patient is a 79-year-old male who presents ER after being bit by a raccoon. Avulsion bite of the left 2nd digit over the finger tip. Was seen in urgent care referred here for rabies evaluation. He was trying to catch a feral cat when he accidentally trapped a raccoon. He was setting the raccoon free when it bit him. No other injuries. Tetanus updated prior to coming the ER. Related Data Home Medications Medication Instructions Recorded Confirmed Last Taken Type aspirin 81 mg capsule 81 mg PO DAILY 09/19/24 09/19/24 Unknown History dulaglutide 0.75 mg/0.5 mL mg subcut 09/19/24 Unknown History subcutaneous pen injector (Trulicity) lisinopril 20 mg tablet mg 09/19/24 Unknown History lovastatin 40 mg tablet mg 09/19/24 Unknown History metoprolol succinate 50 mg mg PO 09/19/24 Unknown History tablet,extended release 24 hr sitagliptin phos 100 mg-metformin tablet PO 09/19/24 Unknown History ER 1,000 mg tablet,extend rel 24h mp (Janumet XR) tamsulosin 0.4 mg capsule mg PO 09/19/24 Unknown History Allergies Allergy/AdvReac Type Severity Reaction Status Date / Time No Known Allergies Allergy Verified 09/19/24 08:47 Review of Systems Constitutional: Constitutional: Reports no additional constitutional complaints Musculoskeletal: Musculoskeletal: Reports no additional musculoskeletal complaints Integumentary/Breasts: Skin/Breast: Reports system reviewed and no additional complaints, except as docu PMFSH Past Medical History Medical History (Updated 09/19/24 @ 19:26 by Jose Ontiveros MD) Healthy adult male Exam Narrative: GENERAL: Well-appearing, well-nourished, and in no acute distress. HEAD: Normocephalic, atraumatic. ENT: Mucous membranes moist. CHEST: Clear to auscultation. No respiratory distress. HEART: Regular rate and rhythm. Normal peripheral pulses. EXTREMITIES: Normal range of motion. No edema. SKIN: Warm, dry, skin avulsion left 2nd digit over the finger tips. Finger yellow from iodine soaking. NEURO: No focal deficits. Alert and oriented x3. PSYCH: Normal mood and affect. Course Course Emergency Course: Discussed with infection control nurse Shanice Rosas. Patient to receive rabies IG as well as vaccine. Patient received 0.4 mL of IG in the left index finger where he was bitten. He received the remaining 4.6 mL of IgE and the left deltoid. The rabies vaccine was placed in the right deltoid. Patient will need to follow up with infection control for additional vaccines on day 07/10/13. A prescription has been written for the vaccine. I did not initially sent patient home with a prescription for antibiotic but I have called and spoken with his daughter and sent a prescription to [facility] and encouraged them to pick it up tonight. Vital Signs Vital signs: Vital Signs Temperature 97.8 F 09/19/24 10:01 Pulse Rate 75 09/19/24 10:01 Respiratory Rate 14 09/19/24 10:01 Blood Pressure 141/76 H 09/19/24 10:01 Pulse Oximetry 99 09/19/24 10:01 Oxygen Delivery Room Air 09/19/24 10:01 Temperature 97.8 F 09/19/24 10:01 Pulse Rate 75 09/19/24 10:01 Respiratory Rate 14 09/19/24 10:01 Blood Pressure 141/76 H 09/19/24 10:01 Pulse Oximetry 99 09/19/24 10:01 Oxygen Delivery Room Air 09/19/24 10:01 Medical Decision Making Vital Signs Vital Signs: Vital Signs Temperature 97.8 F 09/19/24 10:01 Pulse Rate 75 09/19/24 10:01 Respiratory Rate 14 09/19/24 10:01 Blood Pressure 141/76 H 09/19/24 10:01 Pulse Oximetry 99 09/19/24 10:01 Oxygen Delivery Room Air 09/19/24 10:01 Temperature 97.8 F 09/19/24 10:01 Pulse Rate 75 09/19/24 10:01 Respiratory Rate 14 09/19/24 10:01 Blood Pressure 141/76 H 09/19/24 10:01 Pulse Oximetry 99 09/19/24 10:01 Oxygen Delivery Room Air 09/19/24 10:01 Discharge Plan Discharge Clinical Impression: Raccoon bite, Exposure to rabies Patient Disposition: Home Condition: Stable Instructions: Animal Bite (ED), Rabies (ED) Additional Instructions: You need repeat vaccination on September 22, September 26, and October 03. You need to contact the infection control office at [place] on 09/21/24 to schedule her 1st appointment. Return the ER if you have any additional concerns. Patient Language: Chinese Prescriptions: New amoxicillin-pot clavulanate 875-125 mg tablet 1 tablet PO Q12H Qty: 14 0RF No Action metoprolol succinate 50 mg tablet extended release 24 hr PO lisinopril 20 mg tablet lovastatin 40 mg tablet Janumet XR 100-1,000 mg tablet, ER multiphase 24 hr PO Trulicity 0.75 mg/0.5 mL pen injector SUBCUT tamsulosin 0.4 mg capsule PO aspirin 81 mg capsule 81 mg PO DAILY Follow-up/Referrals: Shanice Rosas RN [Registered Nurse] - 3 Days ([phone]) Romario,MD Arlyn [Primary Care Provider] -
--- OUTSIDE RECORDS SUMMARY | 2024-09-19 12:54 | XMS_ITS | Encounter Summary ---
Author Organization [facility] Address [facility] [place] [address] Care Team Providers Care Child Therapist Name Role Phone Arlyn Doss MD Primary Care Provider [phone] Encounter Details Date Type Department Care Team (Late st Contact Info) Description 07/26/2024 Blog [employer] Message Enc [facility] Multispecialty Care - [facility] [address] [facility], [address] [place] [address] Kellee Cohen NP [address] [facility] [address] [place] [address] Samir Carroll Social History Tobacco Use Types [...] Sex Assigned at Male 05/19/2024 9:47 AM STUDIO GRIP Legal Sex Male 7:10 PM CDT Gender [...] Description 10/22/2024 10:40 AM CDT Office Visit [facility] Multispecialty Care - [facility] [address] [facility], [address] [place] [address] Kellee Cohen NP [address] [facility] [address] [place] [address] 11/25/2024 10:40 AM CDT [facility] - [address] [place] [address] Arlyn Doss MD [address] [place] [address] [address] [place] [address] documented as of this encounter Visit Diagnoses Not on filedocumented in this encounter Additional Health Concerns Assessment Noted Time PHQ-9 Depression Total Score: 2 03/04/20 24 2:21 PM CDT documented as of this encounter Care Teams Child Therapist Relationship Specialty Start Date End Date Arlyn Doss MD [address] [place] [address] [address] [place] [address] PCP - General INTERNAL MEDICINE 03/04/24 documented as of this encounter
--- OUTSIDE RECORDS SUMMARY | 2024-09-19 12:54 | XMS_ITS | Encounter Summary ---
Author Organization [facility] Address [address] [place] [address] Care Team Providers Care Senior Quality Engineer Name Role Phone Arlyn Doss MD Primary Care Provider [phone] Encounter Details Date Type Department Care Team (Latest Contact Info) Description 08/26/2024 Results Follow-Up [facility] Medical Group Multispecialty Care - [place] [address] [address] [place], [place] [id number] Arlyn Doss MD [address] [facility] [address] [place] [address] ALBUMIN/CREATININE RATIO, RANDOM URINE, COMPREHENSIVE METABOLIC PANEL, [...] Sex Assigned at Male 05/19/2024 9:47 AM CAREER PLACEMENT SPECIALIST Legal Sex Male 7:10 PM CDT Gender Identity Male 08/25/2024 10:28 AM CDT Sexual Orientation Straight 08/25/2024 10 :28 AM CDT documented as of this encounter Plan of Treatment Upcoming Encounters Date Type Department Care Team (Late st Contact Info) Description 10/22/2024 10:40 AM CDT Office Visit [facility] Multispecialty Care - [facility] [address] [facility], [address] [place] [address] Kellee Cohen NP 3 [facility] [address] [place] [address] 11/25/2024 10:40 AM CDT [facility] - [place] [address] [address] [place] [address] Arlyn Doss MD [address] [place] [address] [address] [place] [address] documented as of this encounter Visit Diagnoses Not on filedocumented in this encounter Additional Health Concerns Assessment Noted Time PHQ-9 Depression Total Score: 2 03/04/20 24 2:21 PM CDT documented as of this encounter Care Teams Senior Quality Engineer Relationship Specialty Start Date End Date Arlyn Doss MD [address] [place] [address] [address] [place] [address] PCP - General INTERNAL MEDICINE 03/04/24 documented as of this encounter
--- OUTSIDE RECORDS SUMMARY | 2024-09-19 12:54 | XMS_ITS | Encounter Summary ---
Author Organization [facility] Address [facility] [place] [address] Care Team Providers Care Rn Cardiac Name Role Phone Arlyn Doss MD Primary Care Provider [phone] Encounter Details Date Type Department Care Team (Late st Contact Info) Description 09/09/2024 MyChart Message Enc [facility] Medical Group Multispecialty Care - [place] [address] [place] [address] [address] [place], [place] [id number] Arlyn Doss MD [address] [facility] [address] [place], [place] [id number] Samir diabetes Social History Tobacco Use Types [...] Sex Assigned at Male 05/19/2024 9:47 AM BREAD PANNER Legal Sex Male 7:10 PM CDT Gender Identity Male 08/25/2024 10:28 AM CDT Sexual Orientation Straight 08/25/2024 10 :28 AM CDT documented as of this encounter Plan of Treatment Upcoming Encounters Date Type Department Care Team (Late st Contact Info) Description 10/22/2024 10:40 AM CDT Office Visit [facility] Medical [facility] Multispecialty [facility] [place] - [facility] [address] [facility], [address] [place] [address] Kellee Cohen NP 3 [facility] [address] [place] [address] 11/25/2024 10:40 AM CDT [facility] [place] - [address] [place] [address] [place] [address] [place] [address] [address] [place] [address] documented as of this encounter Visit Diagnoses Not on filedocumented in this encounter Additional Health Concerns Assessment Noted Time PHQ-9 Depression Total Score: 2 03/04/20 24 2:21 PM CDT documented as of this encounter Care Teams Rn Cardiac Relationship Specialty [place] [address] [place] [address] [address] [place] [address] PCP - General INTERNAL MEDICINE 03/04/24 documented as of this encounter
--- OUTSIDE RECORDS SUMMARY | 2024-09-19 12:54 | XMS_ITS | Encounter Summary ---
Author Organization [facility] Address [facility] [place] [address] Care Team Providers Care Highway Engineering Teacher Name Role Phone Sri Reinoso MD Primary Care Provider [phone] Arlyn Doss MD Primary Care Provider [phone] Encounter Details Date Type Department Care Team (Latest Contact Info) Description 03/01/2024 [employer] Message Enc [facility] Medical Group Multispecialty Care - [place] [address] [address] [place] [address] [place] [address] [place] [address] [address] [place] [address] Mr. Samir Carroll Social History [...] Sex Assigned at Male 05/19/2024 9:47 AM COLD WORKING INSPECTOR Legal Sex Male 7:10 PM CDT Gender [...] PM CDT Laura Ho MA Active * Davis Suicide Severity Rating Scale (Screener/Recent Self-Report) Question [...] Description 10/22/2024 10:40 AM CDT Office Visit [facility] Medical [facility] Multispecialty Care - [address], [address] [place] [address] Kellee Cohen, BLOCK MAKING MACHINE OPERATOR [address] [facility] [address] [place] [address] 11/25/2024 10:40 AM CDT Office Visit [facility] Multispecialty Care - [place] [address] [address] [place] [address] Arlyn Doss MD [address] [place] [address] documented as of this encounter Visit Diagnoses Not on filedocumented in this encounter Care Teams Highway Engineering Teacher Relationship Specialty Start Date End Date Sri Reinoso MD [address] [phone] PCP - General 07/15/14 03/03/24 Arlyn Doss MD [address] [place] [address] PCP - General INTERNAL MEDICINE 03/04/24 documented as of this encounter
--- OUTSIDE RECORDS SUMMARY | 2024-09-19 12:54 | XMS_ITS | Encounter Summary ---
Author Organization [facility] Address [facility] [place] [address] Care Team Providers Care Outpatient Coordinator Name Role Phone Sri Reinoso MD Primary Care Provider [phone] Arlyn Doss MD Primary Care Provider [phone] Encounter Details Date Type Department Care Team (Late Contact Info) Description 09/29/2020 Prep for Procedure [facility] Pre-Admission Testing [place], [place] [address] Gonsalo Anderson MD [address] [facility] [address] [place] [address] Social History Tobacco Use Types Packs/Day Years Used Date Smoking Tobacco: Never Smokeless Tobacco: Never Alcohol Use Standard Drinks/Week Comments Not Currently 0 (1 standard drink = 0.6 oz pur e alcohol) Sex and Gender Information Value Date Recorded Sex Assigned at Male 05/19/2024 9:47 AM INSTRUCTIONAL DESIGN CONSULTANT Legal Sex Male 7:10 PM CDT Gender [...] Description 10/22/2024 10:40 AM CDT Office Visit [facility] Multispecialty Care - [facility] [address] [facility], [address] [place] [address] Kellee Cohen NP 3 [facility] [address] [place] [address] 11/25/2024 10:40 AM CDT Office Visit [facility] Multispecialty Care - [place] [address] [place] [address] [address] [place], [place] [phone] Arlyn Doss MD [address] [facility] [address] [place], [place] [address] documented as of this encounter Results * (ABNORMAL) URINALYSIS WI REFLEX TO CULTURE (10/04/2020 11:04 AM CDT) SPECIMEN TYPE URINE CLEAN CATCH 10/04/2020 11:04 AM CDT [facility] COLOR (U) YELLOW 10/04/2020 12:47 PM CDT [facility] TRANSPARENCY EXTREMELY TURBID 10/04/2020 12:47 PM CDT [facility] SPECIFIC GRAVITY (U) 1.028 1.001 - 1.030 10/04/2020 12:47 PM CDT [facility] U PH 5.5 5.0 - 9.0 10/04/2020 12:47 PM CDT [facility] LEUKOCYTES (U) 500(A) NEGATIVE 10/04/2020 12:47 PM CDT [facility] NITRITES 1+(A) NEGATIVE 10/04/2020 12:47 PM CDT [facility] PROTEIN (U) 50(H) <30 MG/DL 10/04/2020 12:47 PM CDT [facility] URINE GLUCOSE >1000(A) NORMAL MG/DL 10/04/2020 12:47 PM CDT [facility] KETONES MG/DL (U) 20(A) NEGATIVE MG/DL 10/04/2020 12:47 PM CDT [facility] Comment: Successful Call: [facility] called 10/04/2020 12:48 PM to [facility] ([id number]/MITCHELL Molina) by [id number]. Read Back: Yes UROBILINOGEN NORMAL NORMAL MG/DL 10/04/2020 12:47 PM CDT [facility] BILIRUBIN (U) NEGATIVE NEGATIVE MG/DL 10/04/2020 12:47 PM CDT [facility] BLOOD (U) 1+(A) NEGATIVE 10/04/2020 12:47 PM CDT [facility] CULTURE & SENSITIVITY INDICATED? SPECIMEN SETUP FOR CULTURE 10/04/2020 12:47 PM CDT [facility] MUCUS MANY /LPF 10/04/2020 3:10 PM CDT [facility] WBC/HPF >100(H) <6 /HPF 10/04/2020 3:10 PM CDT [facility] WBC CLUMPS PRESENT 10/04/2020 3:10 PM CDT [facility] RBC/HPF 6(H) <6 /HPF 10/04/2020 3:10 PM CDT [facility] URINE SPECIMEN OBTAINED BY CLEAN CATCH PROCEDURE / Unknown 10/04/2020 11:04 AM CDT us Gonsalo Anderson MD URINE ORDERABLES Final Result [facility] [address] [place] [address], [place] [phone] documented in this encounter Visit Diagnoses Diagnosis [...] documented as of this encounter Care Teams Outpatient Coordinator Relationship Specialty Start Date End Date Sri Reinoso MD [address] [phone] PCP - General 07/15/14 03/03/24 Arlyn Doss MD [address] [address] PCP - General INTERNAL MEDICINE 03/04/24 documented as of this encounter
--- OUTSIDE RECORDS SUMMARY | 2024-09-19 12:54 | XMS_ITS | Clinical Summary ---
Author Organization [facility] Address [address] [place] [address] Care Team Providers Care Forestry Support Specialist Name Role Phone Arlyn Doss MD Primary Care Provider [phone] Allergies No known active allergies Medications aspirin 81 MG chewable tablet daily. Acti ve Blood Glucose Monitoring Suppl ([employer]YLE FREEDOM LITE) w/Device Kit 4 Active lovastatin (MEVACOR) 40 MG tabletIndications :Hyperlipidemia associated with type 2 diabetes mellitus ([facility] HHS/HCC) Take 1 tablet (40 mg total) [...] hyperglycemia, without long-term current use of insulin ([facility] HHS/HCC) Use daily to check to blood sugar 200 each 11 4 Active FREESTYLE LITE test stripIndications: Type 2 diabetes mellitus with hyperglycemia, without long-term current use of insulin ([facility]) Use daily to check to blood sugar 200 strip 11 4 Active JARDIANCE 25 MG tabletIndications :Type 2 diabetes mellitus with hyperglycemia, without long-term current use of insulin ([facility] HHS/HCC) Take 1 tablet (25 mg total) by mouth daily. 90 tablet 3 5 Active sitaGLIPtin-metFO RMIN ER (JANUMET XR) 100-1000 MG TABLET SR 24 HR 24 hr tabletIndications :Type 2 diabetes mellitus with hyperglycemia, without long-term current use of insulin ([facility] HHS/HCC) Take 1 tablet by mouth daily. 90 tablet 3 5 Active dulaglutide (TRULICITY) 0.75 MG/0.5ML injectionIndicati ons:Type 2 diabetes mellitus with hyperglycemia, without long-term current use of insulin ([facility] HHS/HCC) Inject 0.75 mg into the skin once a week. 2 mL 2 5 Active sitaGLIPtin-metFO RMIN ER (JANUMET XR) 100-1000 MG TABLET SR 24 HR 24 hr tabletIndications :Type 2 diabetes mellitus with hyperglycemia, without long-term current use of insulin ([facility]) Take 1 tablet by mouth daily. 90 tablet 3 5 08/26/19 25 Discontinu ed(Reorder ) JARDIANCE 25 MG tabletIndications :Type 2 diabetes mellitus with hyperglycemia, without long-term current use of insulin ([facility]) Take 1 tablet (25 mg total) by mouth daily. 90 tablet 3 5 08/26/19 25 Discontinu ed(Reorder ) dulaglutide (TRULICITY) 0.75 MG/0.5ML injectionIndicati ons:Type 2 diabetes mellitus with hyperglycemia, without long-term current use of insulin ([facility] HHS/HCC) Inject 0.75 mg into the skin once a week. 2 mL 2 5 09/10/19 25 Discontinu ed(Reorder ) Active Problems Problem Noted Date Diagnosed Date Type 2 diabetes mellitus wit hout complication, without long-term current use of insulin ([facility] H[facility]/HCC) 03/04/2024 Encounters Date Type Department Care Team Description 09/09/2024 Orders Only [facility] [place] [id number] [facility] [address] [place] [address] Arlyn Doss MD 09/09/2024 Telephone [facility] [place] [address] [place] [address] Arlyn Doss MD Appointment Request (AWV- Call back in a couple months and try to schedule with PCP visit) 09/09/2024 MyChart Message Enc [facility] [place] [address] [facility] [address] [place] [address] Arlyn Doss MD [facility] 08/26/2024 Scan [employer] INFO SRVCS Scanned, [facility] 08/26/2024 [facility]phone [facility] [place] [address] [facility] [address] [place] [address] Arlyn Doss MD Medication 08/26/2024 MyChart Message Enc [facility] [place] [address] [place] [address] Arlyn Doss MD [facility] immunization record 08/26/2024 Results [facility] [place] [id number] [facility] [address] [place] [address] Arlyn Doss MD ALBUMIN/CREATININE RATIO, RANDOM URINE, COMPREHENSIVE METABOLIC PANEL, HEMOGLOBIN, GLYCOSYLATED 08/25/2024 10:40 AM CDT Office Visit [facility] [place] [address] [place] [address] Arlyn Doss MD Follow Up; Diabetes 08/25/2024 MyChart Message Enc [facility] [place] [address] [place] [address] Arlyn Doss MD [facility] BP 08/25/2024 Telephone [facility] [place] [address] [place] [address] Arlyn Doss MD Blood Pressure 08/25/2024 Travel 07/27/2024 9:40 AM CDT Office Visit [facility] [address] [facility], [address] [place] [address] Kellee Cohen NP Establish Care (Memory loss) 07/27/2024 Travel 07/26/2024 MyChart Message Enc [facility] [address], [address] [place] [address] Kellee Cohen NP Samir Carroll [...] free 06/10/1998 Tdap (Generic) 04/03/2017,06/04/2006 Zoster (Zostavax) 76383 Unt/0.65Ml 03/22/2021,,11/10/2012 Family History Medical History Relation [...] Sex Assigned at Male 05/19/2024 9:47 AM MACHINE ADJUSTER HELPER Legal Sex Male 7:10 PM CDT Gender Identity Male 08/25/2024 10:28 AM CDT Sexual Orientation Straight 08/25/2024 10 :28 AM CDT Last Filed Vital Signs Vital Sign Reading Time Taken Comments Blood Pressure 139/81 08/25/2024 12:56 PM CDT Pulse 71 08/25/2024 10:28 AM CDT Temperature 36.8 C (98.2 F) 05/19/2024 9:57 AM MACHINE ADJUSTER HELPER Respiratory Rate 18 08/25/2024 10:28 AM CDT [...] Description 10/22/2024 10:40 AM CDT Office Visit [facility] Multispecialty Care - [address], [address] [place] [phone] Kellee Cohen NP [address] [facility] [address] [place] [address] 11/25/2024 10:40 AM CDT Office Visit [facility] Multispecialty Care - [address] [place] [address] Arlyn Doss MD [address] [facility] [address] [place] [address] Health Maintenance Due Date Last Done Comments [...] exists Hepatitis C Completed 03/10/2024 PHQ-2 (Physician [place]) Completed 05/19/2024 RSV Immunization or 60+ Years [...] hyperglycemia, without long-term current use of insulin ([facility]) HEMOGLOBIN, GLYCOSYLATED Routine 08/25/2024 10:44 AM CDT Type 2 diabetes mellitus with hyperglycemia, without long-term current use of insulin ([facility] HHS/HCC) ALBUMIN URINE RANDOM W/CREATININE Routine 08/25/2024 10:44 AM CDT Type 2 diabetes mellitus with hyperglycemia, without long-term current use of insulin ([facility] HHS/HCC) COLLECTION VENOUS BLOOD VENIPUNCTURE Routine 08/25/2024 10:39 AM CDT Type 2 diabetes mellitus with hyperglycemia, without long-term current use of insulin ([facility] HHS/HCC) HEPATITIS C ANTIBODY Routine 03/10/2024 10:14 AM MACHINE ADJUSTER HELPER General medical exam Screening for diabetes mellitus Screening for hyperlipidemia Encounter for hepatitis C screening test for low risk patient Drug therapy LIPID PANEL Routine 03/10/2024 10:14 AM MACHINE ADJUSTER HELPER General medical exam Screening for diabetes mellitus Screening for hyperlipidemia Drug therapy DIABETIC RETINOPATHY EXAM (NEGATIVE)(SCAN ORDER) Routine 09/09/2023 from Last 3 Months or Most Recently Relevant to Health Maintenance Results * (ABNORMAL) HEMOGLOBIN, GLYCOSYLATED (08/25/2024 10:44 AM CDT) [facility] HGB A1C 8.0(H) 4.5 - 6.2 % 08/26/2024 9:26 AM CDT [facility] ESTIMATED AVG GLUCOSE 183(H) 74 - 106 MG/DL 08/26/2024 9:26 AM CDT [facility] 08/25/2024 10:4 4 AM CDT Arlyn Doss MD LABORATORY Final Result [facility] [address] [place] [address], [place] [phone] * (ABNORMAL) ALBUMIN/CREATININE RATIO, RANDOM URINE (08/25/2024 10:44 AM CDT) MICROALBUMIN (U) 12.6 <20 MG/L 08/26/19 25 8:12 PM CDT [facility] CREATININE RANDOM (U) 38.1 MG/DL 08/25/2024 8:12 PM CDT [facility] ALBUMIN/CREAT RATIO 33.1(H) <30 MG/G 08/25/2024 8:12 PM CDT [facility] URINE SPECIMEN / Unknown 08/25/2024 10:44 AM CDT Arlyn Doss MD URINE ORDERABLES Final Result [facility] [address] [place] [address], * (ABNORMAL) COMPREHENSIVE METABOLIC PANEL (08/25/2024 10:44 AM CDT) Pathologist [facility] SODIUM S/P/B 138 136 - 145 MMOL/L 08/25/2024 8:12 PM CDT [facility] POTASSIUM S/P/B 4.4 3.5 - 5.1 MMOL/L 08/25/2024 8:12 PM CDT [facility] CHLORIDE S/P/B 101 98 - 107 MMOL/L 08/25/2024 8:12 PM CDT [facility] CO2 30.9 21 - 32 MMOL/L 08/25/2024 8:12 PM CDT [facility] GLUCOSE 222(H) 70 - 99 MG/DL 08/25/2024 8:12 PM T [facility] BUN 23(H) 7 - 18 MG/DL 08/25/2024 8:12 PM CDT [facility] CREATININE S/P/B 1.04 0.70 - 1.30 MG/DL 08/25/2024 8:12 PM CDT [facility] CALCIUM S/P/B 9.7 8.4 - 10.5 MG/DL 08/25/2024 8:15 PM [facility] BILIRUBIN TOTAL S/P/B 0.9 0.2 - 1.0 MG/DL 08/25/2024 8:12 PM [facility] ALKALINE PHOSPHATASE S/P/B 79 45 - 115 U/L 08/25/2024 8:12 PM T [facility] AST 18 15 - 37 U/L 08/25/2024 8:12 PM CDT [facility] ALT 29 16 - 63 U/L 08/25/2024 8:12 PM [facility] TOTAL PROTEIN S/P/B 7.4 6.4 - 8.2 G/DL 08/25/2024 8:12 PM [facility] ALBUMIN S/P/B 4.1 3.4 - 5.0 G/DL 08/25/2024 8:12 PM [facility] ANION GAP 6.1 5 - 15 MMOL/L 08/25/2024 8:12 PM [facility] Comment:REFERENCE RANGE NOT ESTABLISHED OSMOLALITY (CALC) 297 MOSM/KG 025 8:12 PM [facility] Comment:REFERENCE RANGE NOT ESTABLISHED GFR ESTIMATE 73(L) >90 ML/MIN/1. 73 M2 08/25/2024 8:12 PM [facility] GFR NOTES GFR REFERENCE S: 08/25/2024 8:12 PM T [facility] Comment: THE ESTIMATED GFR IS CALCULATED [...] CDT Arlyn Doss MD LABORATORY Final Result [facility] [place] [address] [place] [address], [place] [phone] * LIPID PANEL (03/10/2024 10:14 AM MACHINE ADJUSTER HELPER) CHOLESTEROL 148 <200 MG/DL 03/10/2024 3:27 PM MACHINE ADJUSTER HELPER [facility] TRIGLYCERIDES 72 <150 MG/DL 03/10/2024 3:27 PM MACHINE ADJUSTER HELPER [facility] HDL 59 >40 MG/DL 03/10/2024 3:27 PM MACHINE ADJUSTER HELPER [facility] LDL-C 75 <100 MG/DL 03/10/2024 3:27 PM MACHINE ADJUSTER HELPER [facility] VLDL CALCULATION 14 5 - 28 MG/DL 03/10/2024 3:27 PM MACHINE ADJUSTER HELPER [facility] CHOL/HDL RATIO 2.5 0.0 - 4.0 03/10/2024 3:27 PM MACHINE ADJUSTER HELPER [facility] LDL/HDL 1.3 0.41 - 2.13 03/10/2024 3:27 PM MACHINE ADJUSTER HELPER [facility] NON HDL CHOLESTEROL 89 <140 MG/DL 03/10/2024 3:27 PM MACHINE ADJUSTER HELPER [facility] 03/10/2024 10:1 4 AM MACHINE ADJUSTER HELPER us Arlyn Doss MD LABORATORY Final Result [facility] [place] [id number] [place] [address], [place] [phone] * HEPATITIS C ANTIBODY (03/10/2024 10:14 AM MACHINE ADJUSTER HELPER) HEPATITIS C AB NON-REACTI VE NON-REACT TILA 03/10/2024 8:46 PM MACHINE ADJUSTER HELPER [facility] Comment: ANTIBODIES TO HCV NOT DETECTED. DOES NOT EXCLUDE THE POSSIBILITY OF EXPOSURE TO HCV. 03/10/2024 10:1 4 AM MACHINE ADJUSTER HELPER Arlyn Doss MD LABORATORY Final Result Performing Organization Address City/[facility]/ZIP Co de Phone Number 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
[2024-09-19] MEDS: RABIES VACCINE (RABAVERT) 2.5 UNITS VIAL IM (13:34)
[2024-09-19] MEDS: RABIES IMMUNE GLOBULIN/PF 1,500 UNITS/5 ML VIAL 1500 UNITS IM (13:37)
== END 2024-09-19 14:05 | disposition home or self-care (01) ==
PROVIDERS: Emergency Provider Emergency Medicine; PCP Internal Medicine
DX: S61.251A Open bite of left index finger without damage to nail, initial encounter (principal); Z23 Encounter for immunization; W55.51XA Bitten by raccoon, initial encounter
CPT/HCPCS: 90375; 90471; 90675; 90714; 96372; 99283

== ENCOUNTER 2024-10-03 07:38 | Outpatient (RCR) | payer MEDICARE, OTHER, SELFPAY ==
[2024-09-22] MEDS: RABIES VACCINE (RABAVERT) 2.5 UNITS VIAL IM (13:25)
== END 2024-12-21 23:59 | disposition home or self-care (01) ==
LOC: ANHVASCINF 07:38
PROVIDERS: PCP Internal Medicine; Visit Provider Emergency Medicine
DX: Z20.3 Contact with and (suspected) exposure to rabies (principal); Z29.14 Encounter for prophylactic rabies immune globulin
CPT/HCPCS: 90471; 90675